=== PATIENT | male | born 1990 | race Caucasian/White ===

== ENCOUNTER 2019-07-30 02:02 | Emergency (ER) | payer OTHER ==
[~2019-07-30] VITALS: Ht 182.9 cm; Wt 90.7 kg
[2019-07-30 05:25] VITALS: BP 94/65
== END 2019-07-30 05:26 | disposition home or self-care (01) ==
LOC: ER 02:02
DX: S01.21XA Laceration without foreign body of nose, initial encounter (principal); V89.0XXA Person injured in unspecified motor-vehicle accident, nontraffic, initial encounter; Y93.89 Activity, other specified; Y92.828 Other wilderness area as the place of occurrence of the external cause; Y99.8 Other external cause status

== ENCOUNTER 2020-12-02 15:18 | Emergency (ER) | payer OTHER ==
[~2020-12-02] VITALS: Ht 180.3 cm; Wt 97.5 kg
[2020-12-02 20:03] VITALS: BP 126/60
[2020-12-02] MEDS ORDERED: NORCO7.5 PO (20:36)
[2020-12-03] MEDS ORDERED: NORCO7.5 PO (08:22)
== END 2020-12-02 20:47 | disposition home or self-care (01) ==
LOC: ER 15:18
DX: S93.05XA Dislocation of left ankle joint, initial encounter (principal); S82.832A Other fracture of upper and lower end of left fibula, initial encounter for closed fracture; W17.89XA Other fall from one level to another, initial encounter; Y93.89 Activity, other specified; Y92.89 Other specified places as the place of occurrence of the external cause; Y99.8 Other external cause status